=== PATIENT | female | born 1955 | race Caucasian/White ===

== ENCOUNTER 2016-07-11 09:55 | Emergency (ER) | payer OTHER ==
--- NOTE | 2016-07-11 11:13 | ED ORDER SUMMARY ---
..... Patient: GUZMAN KOVACS OrderSheet [facility] VisitID: [id number] [address] [place] [address] 60y, F Registration Date/Time: 07/11/2016 ORDER SHEET Weight: 102.0 kg (stated) Allergies: NSAIDs, Sulfa Antibiotics GENERAL ORDERS: MEDICATION ORDERS: Zofran ODT PO 4 mg (NOW) (10:33 07/11/2016 Diaz Galloway) (Ack 11:01 Baylee Mejia) (11:03 Baylee Mejia) IV FLUIDS: ORDER SHEET NOTES: [Electronically signed by Nathalia Coppola R.N. (11:48 07/11/2016)] [Electronically signed by Pee Fatima Dr. (22:14 07/11/2016)] [Electronically locked/signed by Nathalia Coppola R.N. (11:48 07/11/2016)]
--- NOTE | 2016-07-11 11:13 | ED ORDER SUMMARY ---
..... Patient: GUZMAN KOVACS OrderSheet [facility] VisitID: [id number] [address] [place] [address] 60y, F Registration Date/Time: 07/11/2016 ORDER SHEET Weight: 102.0 kg (stated) Allergies: NSAIDs, Sulfa Antibiotics GENERAL ORDERS: MEDICATION ORDERS: Zofran ODT PO 4 mg (NOW) (10:33 07/11/2016 Diaz Galloway) (Ack 11:01 Baylee Mejia) (11:03 Baylee Mejia) IV FLUIDS: ORDER SHEET NOTES: [Electronically signed by Nathalia Coppola R.N. (11:48 07/11/2016)] [Electronically signed by Pee Fatima Dr. (22:14 07/11/2016)] [Electronically locked/signed by Nathalia Coppola R.N. (11:48 07/11/2016)]
--- NOTE | 2016-07-11 11:13 | ED CLINICAL REPORT ---
Clinical Report - Physicians/Mid Levels [facility] [address] [place] [address] 07/11/2016 9:56 Patient: GUZMAN KOVACS Time Seen: 10:06; initial patient contact. Arrived- By private vehicle. Historian- patient. HISTORY OF PRESENT ILLNESS Chief Complaint: DENTAL PAIN. This started about 4 days ago and is still present (persistent). It was gradual in onset. Pain described as moderate. The patient has had toothache, swelling of the face and facial pain. Similar symptoms previously: None. Recent medical care: The patient was seen recently in the office. ( Changed to Clindamycin by endontist yesterday). REVIEW OF SYSTEMS No fever, difficulty breathing, nausea or vomiting. All systems otherwise negative, except as recorded above. PAST HISTORY Abrasion(s). Sprain. Fibula Fracture. Tetanus Status. Immunizations. LNMP - Last Normal Menstrual Period. Herpes Simplex. Depression. --10:08 Nathalia Coppola R.N. ADDITIONAL SURGERIES: Adenoidectomy. Appendectomy. Dilatation & Curettage. Ovarian cystecomy. Tonsillectomy. Medications: [place] Oral, as needed. Clindamycin HCl Oral (Capsule 150 mg) 2 capsules, 4x a day, started 217. Acyclovir Oral 400 mg, 2x a day. Effexor XR Oral 37.5 mg, dailly . Allergies: NSAIDs. Sulfa Antibiotics. SOCIAL HISTORY Never smoker. Occasional alcohol use. No drug use. ADDITIONAL NOTES The nursing notes have been reviewed with agreement regarding the chief complaint, PMH and patient medications and allergies. PHYSICAL EXAM Appearance: Alert. No acute distress. Head: Normal external inspection. ENT: Moderate, localized dental decay (upper left first premolar). Dental tenderness. Pharynx normal. Gums normal. No trismus present. Neck: No adenopathy. CVS: Normal heart rate and rhythm. Heart sounds normal. Respiratory: No respiratory distress. Breath sounds normal. Neuro: Oriented X 3. PROGRESS AND PROCEDURES Disposition: Discharged home in good and improved condition. Condition: good. CLINICAL IMPRESSION Alveolar dental abscess. No sinus tract or Bipin's angina. INSTRUCTIONS Your Current Medications: CONTINUE TAKING THE FOLLOWING MEDICATIONS: Acyclovir Oral : 400 mg 2x a day. Clindamycin HCl Oral : Capsule 150 mg, 2 capsules 4x a day, Started: 07-10-16. Effexor XR Oral : 37.5 mg dailly. [place] Oral : prn. Prescription Medications: Zofran (orally disintegrating tablets) 4 mg: take 1 orally every 6 hours as needed for nausea and vomiting. Dispense ten (10). No refill. Substitution is permissible. Follow-up: Follow up with your doctor tomorrow if not better. Call for an appointment. Screening today revealed the patient's blood pressure to be in the hypertensive range. The patient should follow up with a primary care provider for blood pressure management. (Electronically signed by Pee Fatima Dr. 07/11/2016 22:14)
--- NOTE | 2016-07-11 11:13 | ED CLINICAL REPORT ---
Clinical Report - Physicians/Mid Levels [facility] [address] [place] [address] 07/11/2016 9:56 Patient: GUZMAN KOVACS Time Seen: 10:06; initial patient contact. Arrived- By private vehicle. Historian- patient. HISTORY OF PRESENT ILLNESS Chief Complaint: DENTAL PAIN. This started about 4 days ago and is still present (persistent). It was gradual in onset. Pain described as moderate. The patient has had toothache, swelling of the face and facial pain. Similar symptoms previously: None. Recent medical care: The patient was seen recently in the office. ( Changed to Clindamycin by endontist yesterday). REVIEW OF SYSTEMS No fever, difficulty breathing, nausea or vomiting. All systems otherwise negative, except as recorded above. PAST HISTORY Abrasion(s). Sprain. Fibula Fracture. Tetanus Status. Immunizations. LNMP - Last Normal Menstrual Period. Herpes Simplex. Depression. --10:08 Nathalia Coppola R.N. ADDITIONAL SURGERIES: Adenoidectomy. Appendectomy. Dilatation & Curettage. Ovarian cystecomy. Tonsillectomy. Medications: [place] Oral, as needed. Clindamycin HCl Oral (Capsule 150 mg) 2 capsules, 4x a day, started 217. Acyclovir Oral 400 mg, 2x a day. Effexor XR Oral 37.5 mg, dailly . Allergies: NSAIDs. Sulfa Antibiotics. SOCIAL HISTORY Never smoker. Occasional alcohol use. No drug use. ADDITIONAL NOTES The nursing notes have been reviewed with agreement regarding the chief complaint, PMH and patient medications and allergies. PHYSICAL EXAM Appearance: Alert. No acute distress. Head: Normal external inspection. ENT: Moderate, localized dental decay (upper left first premolar). Dental tenderness. Pharynx normal. Gums normal. No trismus present. Neck: No adenopathy. CVS: Normal heart rate and rhythm. Heart sounds normal. Respiratory: No respiratory distress. Breath sounds normal. Neuro: Oriented X 3. PROGRESS AND PROCEDURES Disposition: Discharged home in good and improved condition. Condition: good. CLINICAL IMPRESSION Alveolar dental abscess. No sinus tract or Bipin's angina. INSTRUCTIONS Your Current Medications: CONTINUE TAKING THE FOLLOWING MEDICATIONS: Acyclovir Oral : 400 mg 2x a day. Clindamycin HCl Oral : Capsule 150 mg, 2 capsules 4x a day, Started: 07-10-16. Effexor XR Oral : 37.5 mg dailly. [place] Oral : prn. Prescription Medications: Zofran (orally disintegrating tablets) 4 mg: take 1 orally every 6 hours as needed for nausea and vomiting. Dispense ten (10). No refill. Substitution is permissible. Follow-up: Follow up with your doctor tomorrow if not better. Call for an appointment. Screening today revealed the patient's blood pressure to be in the hypertensive range. The patient should follow up with a primary care provider for blood pressure management. (Electronically signed by Pee Fatima Dr. 07/11/2016 22:14)
--- NOTE | 2016-07-11 11:13 | ED NURSING NOTES ---
Clinical Report - Nurses [facility] [address] [place] [address] 07/11/2016 9:56 [id number] Triage time 10:05. Acuity: LEVEL 4. Chief Complaint: TOOTHACHE and SWELLING OF JAW / FACE. LEWIS COMA SCORE: [place] Coma Scale: 15- eyes open spontaneously (4); best verbal response- oriented x 4 (5); best motor response- obeys commands (6). --10:11 Nathalia Coppola R.N. 10:04 07/11/16. BP: 146/90. HR: 72. RR: 18. O2 saturation: 99% on room air. Temp: 99.1 F (oral). Pain level now: 11/09. --10:11 Nathalia Coppola R.N. Weight: 102 kg stated. Height/Length: 69 inches Per Patient. BMI: 33.2. --10:09 Nathalia Coppola R.N. Medications Acyclovir Oral 400 mg, 2x a day. Effexor XR Oral 37.5 mg, dailly . --10:06 Nathalia Coppola R.N. Clindamycin HCl Oral (Capsule 150 mg) 2 capsules, 4x a day, started 07-10-16. --10:06 Nathalia Coppola R.N. [place] Oral, as needed. --10:07 Nathalia Coppola R.N. Medication/allergy information source: the patient. --10:11 Nathalia Coppola R.N. Allergies NSAIDs. Sulfa Antibiotics. --10:06 Nathalia Coppola R.N. History Arrived by private vehicle. Historian: patient. Unaccompanied. Onset. (Friday). ( saw her Dentist, had root canal done changed antibiotics and it's just getting worse). She has had nausea. PAST MEDICAL HX: The patient is post-menopausal. SOCIAL HX: Smoker- current status unknown (no). Occasional alcohol use. No drug use. FALL RISK ASSESSMENT: Fall risk assessment completed. No fall risk identified. FUNCTIONAL ASSESSMENT: Functional assessment: no impairments noted. LEARNING NEEDS ASSESSMENT: The learning needs assessment revealed no barriers. --10:11 Nathalia Coppola R.N. Primary physician (Abdulkadir). --10:12 Nathalia Coppola R.N. PROBLEMS: Abrasion(s). Sprain. Fibula Fracture. Tetanus Status. Immunizations. LNMP - Last Normal Menstrual Period. Herpes Simplex. Depression. --10:08 Nathalia Coppola R.N. ADDITIONAL SURGERIES: Adenoidectomy. Appendectomy. Dilatation & Curettage. Ovarian cystecomy. Tonsillectomy. --10:08 Nathalia Coppola R.N. Assessment GENERAL / NEURO / PSYCH: The patient is awake and alert, is oriented and cooperative and appears uncomfortable. She has good eye contact. RESPIRATORY: Respirations not labored. SKIN: Skin is warm and dry. --10:11 Nathalia Coppola R.N. Interventions ID and allergy band on patient. To treatment room. --10:11 Nathalia Coppola R.N. PHYSICAL ASSESSMENT 10:14 07/11/16. Ambulatory to room. GENERAL / NEURO / PSYCH: The patient is awake and alert, is oriented and cooperative and appears uncomfortable. She has good eye contact. HEENT: Facial swelling present. RESPIRATORY: Respirations not labored. SKIN: Skin is warm and dry. --10:14 Nathalia Coppola R.N. NURSING PROGRESS NOTES 10:14 07/11/16. Head of bed elevated. Call light placed in reach. Side rails up x 1. Bed placed in lowest position. Brakes of bed on. --10:14 Nathalia Coppola R.N. 11:03 07/11/2016 Zofran ODT (Ondansetron) PO Oral Disintegrating Tablets 4 mg given. Allergies verified and confirmed 5 rights. --11:03 Nathalia Coppola R.N. 11:20. Reassessment after medication administered. She is calm. Overall patient status is the same- she states feels the same (no vomiting while in ED). GENERAL / NEURO / PSYCH: Alert. Oriented X 4. RESPIRATORY: No respiratory distress. SKIN: Skin is warm and dry. --11:47 Nathalia Coppola R.N. DISPOSITION / DISCHARGE Departure time: 1120. Condition at departure: stable. No learning barriers present. Discharge instructions provided and reviewed with the patient. Reviewed medication(s). Prescription(s) given to the patient. Patient verbalized understanding. Written instructions provided in [place]. The patient was discharged home and unaccompanied at time of discharge. She left the Emergency Department ambulatory and via private vehicle. FALL RISK ASSESSMENT: Fall risk assessment completed. No fall risk identified. --11:46 Nathalia Coppola R.N. 11:45 07/11/16. BP: 122/80. HR: 67. RR: 18. O2 saturation: 98% on room air. Pain level now: 01/09. --11:46 Nathalia Coppola R.N. Locked/Released at 07/11/2016 11:48 by Nathalia Coppola R.N.
--- NOTE | 2016-07-11 11:13 | ED NURSING NOTES ---
Clinical Report - Nurses [facility] [address] [place] [place] [address] 07/11/2016 9:56 [id number] Triage time 10:05. Acuity: LEVEL 4. Chief Complaint: TOOTHACHE and SWELLING OF JAW / FACE. LEWIS COMA SCORE: [place] Coma Scale: 15- eyes open spontaneously (4); best verbal response- oriented x 4 (5); best motor response- obeys commands (6). --10:11 Nathalia Coppola R.N. 10:04 07/11/16. BP: 146/90. HR: 72. RR: 18. O2 saturation: 99% on room air. Temp: 99.1 F (oral). Pain level now: 11/09. --10:11 Nathalia Coppola R.N. Weight: 102 kg stated. Height/Length: 69 inches Per Patient. BMI: 33.2. --10:09 Nathalia Coppola R.N. Medications Acyclovir Oral 400 mg, 2x a day. Effexor XR Oral 37.5 mg, dailly . --10:06 Nathalia Coppola R.N. Clindamycin HCl Oral (Capsule 150 mg) 2 capsules, 4x a day, started 07-10-16. --10:06 Nathalia Coppola R.N. [place] Oral, as needed. --10:07 Nathalia Coppola R.N. Medication/allergy information source: the patient. --10:11 Nathalia Coppola R.N. Allergies NSAIDs. Sulfa Antibiotics. --10:06 Nathalia Coppola R.N. History Arrived by private vehicle. Historian: patient. Unaccompanied. Onset. (Friday). ( saw her Dentist, had root canal done changed antibiotics and it's just getting worse). She has had nausea. PAST MEDICAL HX: The patient is post-menopausal. SOCIAL HX: Smoker- current status unknown (no). Occasional alcohol use. No drug use. FALL RISK ASSESSMENT: Fall risk assessment completed. No fall risk identified. FUNCTIONAL ASSESSMENT: Functional assessment: no impairments noted. LEARNING NEEDS ASSESSMENT: The learning needs assessment revealed no barriers. --10:11 Nathalia Coppola R.N. Primary physician (Abdulkadir). --10:12 Nathalia Coppola R.N. PROBLEMS: Abrasion(s). Sprain. Fibula Fracture. Tetanus Status. Immunizations. LNMP - Last Normal Menstrual Period. Herpes Simplex. Depression. --10:08 Nathalia Coppola R.N. ADDITIONAL SURGERIES: Adenoidectomy. Appendectomy. Dilatation & Curettage. Ovarian cystecomy. Tonsillectomy. --10:08 Nathalia Coppola R.N. Assessment GENERAL / NEURO / PSYCH: The patient is awake and alert, is oriented and cooperative and appears uncomfortable. She has good eye contact. RESPIRATORY: Respirations not labored. SKIN: Skin is warm and dry. --10:11 Nathalia Coppola R.N. Interventions ID and allergy band on patient. To treatment room. --10:11 Nathalia Coppola R.N. PHYSICAL ASSESSMENT 10:14 07/11/16. Ambulatory to room. GENERAL / NEURO / PSYCH: The patient is awake and alert, is oriented and cooperative and appears uncomfortable. She has good eye contact. HEENT: Facial swelling present. RESPIRATORY: Respirations not labored. SKIN: Skin is warm and dry. --10:14 Nathalia Coppola R.N. NURSING PROGRESS NOTES 10:14 07/11/16. Head of bed elevated. Call light placed in reach. Side rails up x 1. Bed placed in lowest position. Brakes of bed on. --10:14 Nathalia Coppola R.N. 11:03 07/11/2016 Zofran ODT (Ondansetron) PO Oral Disintegrating Tablets 4 mg given. Allergies verified and confirmed 5 rights. --11:03 Nathalia Coppola R.N. 11:20. Reassessment after medication administered. She is calm. Overall patient status is the same- she states feels the same (no vomiting while in ED). GENERAL / NEURO / PSYCH: Alert. Oriented X 4. RESPIRATORY: No respiratory distress. SKIN: Skin is warm and dry. --11:47 Nathalia Coppola R.N. DISPOSITION / DISCHARGE Departure time: 1120. Condition at departure: stable. No learning barriers present. Discharge instructions provided and reviewed with the patient. Reviewed medication(s). Prescription(s) given to the patient. Patient verbalized understanding. Written instructions provided in [place]ian. The patient was discharged home and unaccompanied at time of discharge. She left the Emergency Department ambulatory and via private vehicle. FALL RISK ASSESSMENT: Fall risk assessment completed. No fall risk identified. --11:46 Nathalia Coppola R.N. 11:45 07/11/16. BP: 122/80. HR: 67. RR: 18. O2 saturation: 98% on room air. Pain level now: 01/09. --11:46 Nathalia Coppola R.N. Locked/Released at 07/11/2016 11:48 by Nathalia Coppola R.N.
--- NOTE | 2016-07-11 22:14 | ED MED RECONCILIATION SUMMARY ---
Patient: GUZMAN KOVACS Medication Reconciliation Report [facility] VisitID: [id number] [address] [place] [address] 60y, F Registration Date/Time: 07/11/2016 Weight: 102.0 kg Height/Length: 69 in. BMI: 33.2 ALLERGIES: NSAIDs, Sulfa Antibiotics The patient's Home Medications are listed below: CONTINUE TAKING THE FOLLOWING MEDICATIONS: Acyclovir Oral 400 mg, 2x a day Clindamycin HCl Oral (150 mg) 2 capsules, 4x a day Effexor XR Oral 37.5 mg, dailly [place] Oral The source(s) of the original Home Medication information: patient The following Medications were given to the patient in the Emergency Department: Zofran ODT [PO] PO 4 mg, administered: 07/11/2016 11:03:00 AM The following Medications were prescribed to the patient: Zofran (orally disintegrating tablets) 4 mg: take 1 orally every 6 hours as needed for nausea and vomiting. Dispense ten (10). No refill. Substitution is permissible. -- Pee Fatima Dr.
--- NOTE | 2016-07-11 22:14 | ED DISCHARGE INSTRUCTIONS ---
Patient: GUZMAN KOVACS General Instructions [facility] VisitID: [id number] [place] [address] 60y, F Registration Date/Time: 07/11/2016 Alveolar dental abscess. No sinus tract or Bipin's angina. INSTRUCTIONS Your Current Medications: CONTINUE TAKING THE FOLLOWING MEDICATIONS: Acyclovir Oral : 400 mg 2x a day. Clindamycin HCl Oral : Capsule 150 mg, 2 capsules 4x a day, Started: 07-10-16. Effexor XR Oral : 37.5 mg dailly. [place] Oral : prn. Prescription Medications: Zofran (orally disintegrating tablets) 4 mg: take 1 orally every 6 hours as needed for nausea and vomiting. Dispense ten (10). No refill. Substitution is permissible. Follow-up: Follow up with your doctor tomorrow if not better. Call for an appointment. Screening today revealed the patient's blood pressure to be in the hypertensive range. The patient should follow up with a primary care provider for blood pressure management. ADDITIONAL INFORMATION Dental Abscess A dental abscess is an infection of the tooth socket. It often starts with a crack or cavity in the tooth. A pocket of pus forms between the tooth and the bone. The infection causes pain and swelling of the gum, cheek or jaw. The pain is often made worse by drinking hot or cold fluids, or biting on hard foods. Pain may be felt in the facial sinus or in the ear. A severe infection can interfere with swallowing and breathing. In the emergency department or clinic, you will be started on an antibiotic. However, final treatment requires drainage of the pus. This can be done by removing the tooth or performing a root canal. A root canal is done by an oral surgeon and involves drilling an opening in the tooth to drain the pus. After the infection has healed, a crown is placed over the tooth. Home care The following guidelines will help you care for your abscess at home: Avoid hot and cold foods and liquids since your tooth may be sensitive to temperature changes. If your tooth is chipped or cracked, or if there is a large open cavity, applyoil of cloves(available [id number] in drug stores) directly to the tooth to reduce pain. Some pharmacies carry an [id number] "toothache kit". This contains oil of cloves and a paste, which can be applied over the exposed tooth to decrease sensitivity. Apply an ice pack (ice cubes in a plastic bag, wrapped in a towel) over the injured area for 20 minutes every 12 hours the first day for pain relief. Continue this 34 times a day until the pain and swelling goes away. You may use acetaminophen or ibuprofen to control pain, unless another medicine was prescribed. If you have chronic liver or kidney disease or ever had a stomach ulcer or GI bleeding, talk with your doctor before using these medicines. An antibiotic will be prescribed. Take it as directed until completed, even if you are feeling better sooner. Follow-up care Follow up as directed with a dentist or oral surgeon. Even though your pain may improve with the treatment given today, only a dentist or oral surgeon can provide full treatment for this problem. When to seek medical care Get prompt medical attention or contact your doctor if any of the following occur: Your face or eyelid becomes swollen or red Pain worsens or spreads to the neck Fever over 100.4F (38.0C) Unusual drowsiness; headache or stiff neck; weakness, or fainting Pus drains from the gum or tooth Difficulty talking, swallowing or breathing Unable to open your mouth wide Ondansetron Oral disintegrating tablet What is this medicine? ONDANSETRON (on EMILY se eleuterio) is used to treat nausea and vomiting caused by chemotherapy. It is also used to prevent or treat nausea and vomiting after surgery. How should I use this medicine? These tablets are made to dissolve in the mouth. Do not try to push the tablet through the foil backing. With dry hands, peel away the foil backing and gently remove the tablet. Place the tablet in the mouth and allow it to dissolve, then swallow. While you may take these tablets with water, it is not necessary to do so. Talk to your visitor services specialist regarding the use of this medicine in children. Special care may be needed. What side effects may I notice from receiving this medicine? Side effects that you should report to your doctor or health healthcare science specialist as soon as possible: allergic reactions like skin rash, itching or hives, swelling of the face, lips, or tongue breathing problems dizziness fast or irregular heartbeat feeling faint or lightheaded, falls fever and chills swelling of the hands and feet tightness in the chest Side effects that usually do not require medical attention (report to your doctor or health healthcare science specialist if they continue or are bothersome): constipation or diarrhea headache What may interact with this medicine? Do not take this medicine with any of the following medications: -apomorphine -cisapride -dofetilide -dronedarone -pimozide -thioridazine -ziprasidone This medicine may also interact with the following medications: -carbamazepine -phenytoin -rifampicin -tramadol -other medicines that prolong the QT interval (cause an abnormal heart rhythm) What if I miss a dose? If you miss a dose, take it as soon as you can. If it is almost time for your next dose, take only that dose. Do not take double or extra doses. Where should I keep my medicine? Keep out of the reach of children. Store between 2 and 30 degrees C (36 and 86 degrees F). Throw away any unused medicine after the expiration date. What should I tell my health care provider before I take this medicine? They need to know if you have any of these conditions: heart disease history of irregular heartbeat liver disease low levels of magnesium or potassium in the blood an unusual or allergic reaction to ondansetron, granisetron, other medicines, foods, dyes, or preservatives or trying to get breast-feeding What should I watch for while using this medicine? Check with your doctor or health healthcare science specialist as soon as you can if you have any sign of an allergic reaction. You have been given the following additional information: Tooth Abscess Ondansetron Oral disintegrating tablet (Electronically signed by Pee Fatima Dr. 07/11/2016 22:14)
--- NOTE | 2016-07-11 22:14 | ED MED RECONCILIATION SUMMARY ---
Patient: GUZMAN KOVACS Medication Reconciliation Report [facility] VisitID: [id number] [address] [place] [address] 60y, F Registration Date/Time: 07/11/2016 Weight: 102.0 kg Height/Length: 69 in. BMI: 33.2 ALLERGIES: NSAIDs, Sulfa Antibiotics The patient's Home Medications are listed below: CONTINUE TAKING THE FOLLOWING MEDICATIONS: Acyclovir Oral 400 mg, 2x a day Clindamycin HCl Oral (150 mg) 2 capsules, 4x a day Effexor XR Oral 37.5 mg, dailly [place] Oral The source(s) of the original Home Medication information: patient The following Medications were given to the patient in the Emergency Department: Zofran ODT [PO] PO 4 mg, administered: 07/11/2016 11:03:00 AM The following Medications were prescribed to the patient: Zofran (orally disintegrating tablets) 4 mg: take 1 orally every 6 hours as needed for nausea and vomiting. Dispense ten (10). No refill. Substitution is permissible. -- Pee Fatima Dr.
--- NOTE | 2016-07-11 22:14 | ED MAR SUMMARY ---
..... Medication Administration Record [facility] [address] [place] [address] Patient: GUZMAN KOVACS Visit ID: [id number] 60y, F Weight: 102.0 kg Height/Length: 69 in BMI: 33.2 ALLERGIES: NSAIDs, Sulfa Antibiotics Given 11:03 07/11/2016 Nathalia Coppola R.N. Medication Administered: ZOFRAN ODT [PO] (ONDANSETRON), Dose: 4 mg Oral Disintegrating Tablets PO. Medication Ordered: Zofran ODT PO 4 mg (NOW).
--- NOTE | 2016-07-11 22:14 | ED MAR SUMMARY ---
..... Medication Administration Record [facility] [address] [place] [address] Patient: GUZMAN KOVACS Visit ID: [id number] 60y, F Weight: 102.0 kg Height/Length: 69 in BMI: 33.2 ALLERGIES: NSAIDs, Sulfa Antibiotics Given 11:03 07/11/2016 Nathalia Coppola R.N. Medication Administered: ZOFRAN ODT [PO] (ONDANSETRON), Dose: 4 mg Oral Disintegrating Tablets PO. Medication Ordered: Zofran ODT PO 4 mg (NOW).
--- NOTE | 2016-07-11 22:14 | ED DISCHARGE INSTRUCTIONS ---
Patient: GUZMAN KOVACS General Instructions [facility] VisitID: [id number] [place] [address] 60y, F Registration Date/Time: 07/11/2016 Alveolar dental abscess. No sinus tract or Bipin's angina. INSTRUCTIONS Your Current Medications: CONTINUE TAKING THE FOLLOWING MEDICATIONS: Acyclovir Oral : 400 mg 2x a day. Clindamycin HCl Oral : Capsule 150 mg, 2 capsules 4x a day, Started: 07-10-16. Effexor XR Oral : 37.5 mg dailly. Alto Oral : prn. Prescription Medications: Zofran (orally disintegrating tablets) 4 mg: take 1 orally every 6 hours as needed for nausea and vomiting. Dispense ten (10). No refill. Substitution is permissible. Follow-up: Follow up with your doctor tomorrow if not better. Call for an appointment. Screening today revealed the patient's blood pressure to be in the hypertensive range. The patient should follow up with a primary care provider for blood pressure management. ADDITIONAL INFORMATION Dental Abscess A dental abscess is an infection of the tooth socket. It often starts with a crack or cavity in the tooth. A pocket of pus forms between the tooth and the bone. The infection causes pain and swelling of the gum, cheek or jaw. The pain is often made worse by drinking hot or cold fluids, or biting on hard foods. Pain may be felt in the facial sinus or in the ear. A severe infection can interfere with swallowing and breathing. In the emergency department or clinic, you will be started on an antibiotic. However, final treatment requires drainage of the pus. This can be done by removing the tooth or performing a root canal. A root canal is done by an oral surgeon and involves drilling an opening in the tooth to drain the pus. After the infection has healed, a crown is placed over the tooth. Home care The following guidelines will help you care for your abscess at home: Avoid hot and cold foods and liquids since your tooth may be sensitive to temperature changes. If your tooth is chipped or cracked, or if there is a large open cavity, applyoil of cloves(available wbcd-vqe-drnjook in drug stores) directly to the tooth to reduce pain. Some pharmacies carry an fdyy-izy-hvekaeu "toothache kit". This contains oil of cloves and a paste, which can be applied over the exposed tooth to decrease sensitivity. Apply an ice pack (ice cubes in a plastic bag, wrapped in a towel) over the injured area for 20 minutes every 12 hours the first day for pain relief. Continue this 34 times a day until the pain and swelling goes away. You may use acetaminophen or ibuprofen to control pain, unless another medicine was prescribed. If you have chronic liver or kidney disease or ever had a stomach ulcer or GI bleeding, talk with your doctor before using these medicines. An antibiotic will be prescribed. Take it as directed until completed, even if you are feeling better sooner. Follow-up care Follow up as directed with a dentist or oral surgeon. Even though your pain may improve with the treatment given today, only a dentist or oral surgeon can provide full treatment for this problem. When to seek medical care Get prompt medical attention or contact your doctor if any of the following occur: Your face or eyelid becomes swollen or red Pain worsens or spreads to the neck Fever over 100.4F (38.0C) Unusual drowsiness; headache or stiff neck; weakness, or fainting Pus drains from the gum or tooth Difficulty talking, swallowing or breathing Unable to open your mouth wide Ondansetron Oral disintegrating tablet What is this medicine? ONDANSETRON (on EMILY se eleuterio) is used to treat nausea and vomiting caused by chemotherapy. It is also used to prevent or treat nausea and vomiting after surgery. How should I use this medicine? These tablets are made to dissolve in the mouth. Do not try to push the tablet through the foil backing. With dry hands, peel away the foil backing and gently remove the tablet. Place the tablet in the mouth and allow it to dissolve, then swallow. While you may take these tablets with water, it is not necessary to do so. Talk to your social contact worker regarding the use of this medicine in children. Special care may be needed. What side effects may I notice from receiving this medicine? Side effects that you should report to your doctor or health hearing care practitioner as soon as possible: allergic reactions like skin rash, itching or hives, swelling of the face, lips, or tongue breathing problems dizziness fast or irregular heartbeat feeling faint or lightheaded, falls fever and chills swelling of the hands and feet tightness in the chest Side effects that usually do not require medical attention (report to your doctor or health hearing care practitioner if they continue or are bothersome): constipation or diarrhea headache What may interact with this medicine? Do not take this medicine with any of the following medications: -apomorphine -cisapride -dofetilide -dronedarone -pimozide -thioridazine -ziprasidone This medicine may also interact with the following medications: -carbamazepine -phenytoin -rifampicin -tramadol -other medicines that prolong the QT interval (cause an abnormal heart rhythm) What if I miss a dose? If you miss a dose, take it as soon as you can. If it is almost time for your next dose, take only that dose. Do not take double or extra doses. Where should I keep my medicine? Keep out of the reach of children. Store between 2 and 30 degrees C (36 and 86 degrees F). Throw away any unused medicine after the expiration date. What should I tell my health care provider before I take this medicine? They need to know if you have any of these conditions: heart disease history of irregular heartbeat liver disease low levels of magnesium or potassium in the blood an unusual or allergic reaction to ondansetron, granisetron, other medicines, foods, dyes, or preservatives or trying to get breast-feeding What should I watch for while using this medicine? Check with your doctor or health hearing care practitioner as soon as you can if you have any sign of an allergic reaction. You have been given the following additional information: Tooth Abscess Ondansetron Oral disintegrating tablet (Electronically signed by Pee Fatima Dr. 07/11/2016 22:14)
== END 2016-07-11 11:20 | disposition home or self-care (01) ==
LOC: ED SRH 09:55
DX: K04.7 Periapical abscess without sinus (principal); Z79.2 Long term (current) use of antibiotics; Z88.2 Allergy status to sulfonamides; Z88.6 Allergy status to analgesic agent

== ENCOUNTER 2016-11-08 16:58 | Outpatient (CLI) | payer OTHER | END 2016-11-08 23:00 | disposition home or self-care (01) | LOC: LAB SRH 16:58 | DX: Z01.812 Encounter for preprocedural laboratory examination (principal); F32.9 Major depressive disorder, single episode, unspecified | CPT/HCPCS: 90074; 90100; 90298; 91286; 92690; 95059 ==